=== PATIENT | male | born 1955 | race Caucasian/White ===

== ENCOUNTER 2020-04-30 08:03 | Observation (INO) | payer OTHER ==
[~2020-04-30] VITALS: Ht 188 cm; Wt 119.0 kg
[2020-04-30 08:53] LABS: BASOPHILS # (AUTO) 0.03 x10^3/uL (0-0.1); BASOPHILS % (AUTO) 0 % (0-1); EOSINOPHILS # (AUTO) 0.17 x10^3/uL (0-0.4); EOSINOPHILS % (AUTO) 1 % (1-7); LYMPHOCYTES # (AUTO) 1.07 x10^3/uL (1-3.4); LYMPHOCYTES % (AUTO) 8 % (22-44); MD NO; MEAN CORPUSCULAR HEMOGLOBIN 30.8 pg (27.5-34.5); MEAN CORPUSCULAR HGB CONC 32.9 g/dL (33.2-36.2); MEAN CORPUSCULAR VOLUME 93.5 fL (81-97); MEAN PLATELET VOLUME 7.8 fL (7.4-10.4); MONOCYTES # (AUTO) 1.05 x10^3/uL (0.2-0.8); MONOCYTES % (AUTO) 8 % (2-9); NEUTROPHILS # (AUTO) 11.21 x10^3/uL (1.8-6.8); NEUTROPHILS % (AUTO) 83 % (42-75); PLATELET COUNT 303 x10^3/uL (130-400); RED BLOOD COUNT 4.46 x10^6/uL (4.38-5.82); RED CELL DISTRIBUTION WIDTH 13.6 % (9.4-14.8)
[2020-04-30] MEDS ORDERED: ONDANSETRON 2MG/ML, 2ML IVPush ONE (09:00)
[2020-04-30] MEDS ORDERED: MORPHINE SULFATE 4 MG/ML, 1ML IVPush PRN ×2 (09:00→16:30)
[2020-04-30] MEDS ORDERED: PLEASE ENTER ALLERGIES MC SCH (09:00)
[2020-04-30] MEDS ORDERED: SODIUM CHLORIDE FLUSH 10ML SYR IVF ONE (09:00)
[2020-04-30 09:02] LABS: ALANINE AMINOTRANSFERASE 33 U/L (12-78); ALBUMIN 3.6 g/dL (3.4-5.0); ANION GAP 5 mmol/L (5-15); CALCIUM 8.1 mg/dL (8.5-10.1); CHLORIDE 112 mmol/L (98-107); CREATININE 0.97 mg/dL (0.7-1.3)
[2020-04-30 09:05] LABS: ALKALINE PHOSPHATASE 78 U/L (45-117); BILIRUBIN,TOTAL 0.7 mg/dL (0.2-1.0); TOTAL PROTEIN 7.2 g/dL (6.4-8.2)
[2020-04-30 09:24] LABS: MICROSCOPIC NOT IND
[2020-04-30] MEDS ORDERED: OMNIPAQUE 350 MG/ML, 100ML BOTTLE ONE (10:18)
[2020-04-30] MEDS ORDERED: CEFOTETAN PMX 2GM/50ML 50 ML IV ONE (11:00)
--- NOTE | 2020-04-30 11:04 | NUR ---
TASK RN: ALIYA OBTAINING SAMPLE FOR RAPID COVID. PT THEN UOB TO BATHROOM AND UPON RETURN UNDRESSING. ANTIBIOTIC REQUESTED FROM PHARMACY AND WHO FORM COMPLETED.
[2020-04-30] MEDS ORDERED: ONDANSETRON 2MG/ML, 2ML IVPush PRN ×2 (11:30→14:30)
[2020-04-30] MEDS ORDERED: hydrALAzine 20 MG/ML, 1ML IV PRN (11:30)
[2020-04-30] MEDS ORDERED: FENTANYL PF 100 MCG/2ML IV PRN (11:30)
[2020-04-30] MEDS ORDERED: PROMETHAZINE 25 MG/ML, 1ML IVPush PRN (11:30)
[2020-04-30] MEDS ORDERED: ACETAMINOPHEN 325 MG TABLET PO PRN (11:30)
[2020-04-30] MEDS ORDERED: MEPERIDINE/PF 25MG/0.5ML IVPush PRN (11:30)
[2020-04-30] MEDS ORDERED: HYDROmorphone 1 MG/ML, 1ML INJ IVPush PRN (11:30)
[2020-04-30] MEDS ORDERED: LABETALOL 5MG/ML, 20ML IV PRN (11:30)
[2020-04-30] MEDS ORDERED: OXYcodone 5 MG/5 ML ORAL.SOL UDC PO PRN (11:30)
[2020-04-30] MEDS ORDERED: MIDAZOLAM 1 MG/ML, 2ML ONE (11:48)
[2020-04-30] MEDS ORDERED: FENTANYL PF 250 MCG/5ML ONE (11:49)
[2020-04-30] MEDS ORDERED: BUPIVACAINE/PF-EPI 0.5% 1:200K ONE (11:57)
[2020-04-30] MEDS ORDERED: DEXAMETHASONE 4 MG/ML, 1ML ONE ×2 (12:18)
[2020-04-30] MEDS ORDERED: PROPOFOL 10 MG/ML, 20ML ONE (12:23)
[2020-04-30] MEDS ORDERED: SUCCINYLCHOLINE 20 MG/ML, 10ML ONE (12:23)
[2020-04-30] MEDS ORDERED: ROCURONIUM 10MG/ML,5ML ONE (12:23)
[2020-04-30] MEDS ORDERED: KETOROLAC 30 MG/1 ML ONE (12:41)
[2020-04-30] MEDS ORDERED: ONDANSETRON 2MG/ML, 2ML ONE (12:42)
[2020-04-30] MEDS ORDERED: OXYcodone 5 MG/5 ML ORAL.SOL UDC ONE (13:14)
[2020-04-30 14:00] VITALS: BP 118/74
[2020-04-30] MEDS ORDERED: HYDROcodone/APAP 5/325 TABLET PO PRN (14:30)
[2020-04-30 16:45] VITALS: BP 125/79
[2020-04-30] MEDS ORDERED: LOSA25TA25 PO (17:06)
[2020-04-30] MEDS ORDERED: OMEP-110 PO (17:06)
[2020-04-30] MEDS ORDERED: SIMV5TAB14 PO (17:06)
[2020-04-30] MEDS ORDERED: HYDR-3240 PO (17:30)
== END 2020-04-30 17:49 | disposition home or self-care (01) ==
LOC: ED 10:16 → EDIP 10:49 → 4NE 14:00
PROVIDERS: ADMIT Surgery Vascular Surgery; ATTEND Surgery Vascular Surgery
DX: Z03.818 Encounter for observation for suspected exposure to other biological agents ruled out (principal); K35.80 Unspecified acute appendicitis; I10 Essential (primary) hypertension
CPT/HCPCS: 36415; 44970; 74177; 80053; 81003; 85025; 87635; 88304; 96365; 99285; C1729; G0378; J0330; J1100; J1885; J2250; J2405; J2704; J3010; J3490; Q9967